=== PATIENT | female | born 1995 | race Two or more races ===

== ENCOUNTER 2024-12-31 07:21 | Outpatient (CLI) | payer OTHER | END 2024-12-31 07:23 | disposition home or self-care (01) | LOC: PRENATAL 07:21 | PROVIDERS: ATTEND Obstetrics & Gynecology Maternal & Fetal Medicine | DX: O44.00 Complete placenta previa NOS or without hemorrhage, unspecified trimester (principal); O34.219 Maternal care for unspecified type scar from previous cesarean delivery; Z3A.21 21 weeks gestation of pregnancy ==

== ENCOUNTER 2025-02-07 12:58 | Outpatient (CLI) | payer OTHER | END 2025-02-07 12:59 | disposition home or self-care (01) | LOC: PRENATAL 12:58 | PROVIDERS: ATTEND Obstetrics & Gynecology Maternal & Fetal Medicine | DX: O26.849 Uterine size-date discrepancy, unspecified trimester (principal); O34.219 Maternal care for unspecified type scar from previous cesarean delivery; O09.819 Supervision of pregnancy resulting from assisted reproductive technology, unspecified trimester; Z3A.27 27 weeks gestation of pregnancy ==